=== PATIENT | male | born 1985 | race Two or more races ===

== ENCOUNTER 2016-12-28 10:39 | Emergency (ER) | payer OTHER ==
[2016-12-28 11:10] VITALS: BP 128/72
--- NOTE | 2016-12-28 23:45 | UC ---
cezar Hobbs Timothy, scribed for Mandy Sood MD on 12/28/16 at 1159 . Eye Complaint HPI - HPI Summary HPI Summary: Mauricio Owen is a 31 yo male presenting to [facility] with red, draining right eye since last night, stating his daughter had pink eye last week. He also c/o sore throat and that he is recovering from a cold he had last week which is almost entirely resolved, but involved sore throat, fever, and cough. He is not in any current pain. He denies any CP, SOB, N/V/D. He denies any PMHx. - History of Current Complaint Chief Complaint: UCEye Stated Complaint: EYE COMPLAINT Time Seen by Provider: 12/28/16 11:49 Hx Obtained From: Patient Onset/Duration: Sudden Onset, Lasting Hours, Still Present Timing: Constant Severity Initially: Moderate Severity Currently: Moderate Pain Intensity: 0 Pain Scale Used: 0-10 Numeric Location of Injury: Conjunctiva - Allergies/Home Medications Allergies/Adverse Reactions: Allergies Allergy/AdvReac Type Severity Reaction Status Date / Time No Known Allergies Allergy Verified 12/28/16 11:11 PMH/Surg Hx/FS Hx/Imm Hx Previously Healthy: Yes - Surgical History Surgical History: None - Family History Known Family History: Positive: Hypertension Negative: Cardiac Disease, Diabetes - Social History Alcohol Use: Occasionally Substance Use Type: None Smoking Status (MU): Never Smoked Tobacco Review of Systems Constitutional: Fever Skin: Negative Eyes: Drainage, Eye Redness - right ENT: Sore Throat Respiratory: Cough Cardiovascular: Negative Gastrointestinal: Negative Genitourinary: Negative Motor: Negative Neurovascular: Negative Musculoskeletal: Negative Neurological: Negative Psychological: Negative All Other Systems Reviewed And Are Negative: Yes Physical Exam Triage Information Reviewed: Yes Vital Signs: Initial Vital Signs Temp 98.9 F 12/28/16 11:07 Pulse 90 12/28/16 11:07 Resp 16 12/28/16 11:07 BP 128/72 12/28/16 11:07 Pulse Ox 100 12/28/16 11:07 Vital Signs Reviewed: Yes - Additional Comments Constitutional: Pt is awake, A&Ox3, in no acute distress,and cooperative. HENT: atraumatic, ANDRES, normal TMs and canals bilaterally with no discharge. The nose shows no discharge or lesions. There is erythema and injection in the conjunctiva of the right eye. The corneas are clear. Throat: mildly erythematous, no purulence, teeth in good repair. Neck: supple, no masses or adenopathy, no JVD, no thyromegaly. Respiratory: Lungs CTA bilaterally Cardiovascular: RRR, no murmur. Abd: soft, nontender, no masses, no organomegaly, Bowel Sounds: present and normal Musculoskeletal: Full ROM, good color to extremities, good tone, power 5/5 in all extremities Neuro: AOx3, cooperative, coherent Skin: clear, good turgor Eye Complaint Course/Dx - Course Course Of Treatment: Mauricio Owen is a 31 yo male presenting to [facility] with red, draining right eye since last night, stating his daughter had pink eye last week and he has been recovering from a cold with fever, sore throat, and cough. His Group A Rapid Strep Test was negative. After clinical examination he will be discharged home with right eye conjunctivitis and pharyngitis with appropriate instructions. - Differential Dx/Diagnosis Differential Diagnosis/HQI/PQRI: Conjunctivitis, Other - pharyngitis Provider Diagnoses: right eye conjunctivitis, pharyngitis Discharge - Discharge Plan Condition: Stable Disposition: HOME Prescriptions: Tobramycin 0.3% OPHTH.CY* 1 drop BOTH EYES Q4H #1 btl Patient Education Materials: Conjunctivitis (ED), Pharyngitis (ED) Referrals: [facility] [Outside] - 2 Days Additional Instructions: Please follow up with the primary care physician provided. Use the eye drops on both eyes as prescribed. Return to urgent care with any new or recurring symptoms. The documentation as recorded by the cezar tavera Timothy accurately reflects the service I personally performed and the decisions made by , Mandy Sood MD.
== END 2016-12-28 12:30 | disposition home or self-care (01) ==
LOC: UCEAST 10:39
DX: H10.9 Unspecified conjunctivitis (principal); J02.9 Acute pharyngitis, unspecified
CPT/HCPCS: 87651; 99212; G0463